=== PATIENT | male | born 1955 | race Caucasian/White ===

== ENCOUNTER 2017-01-20 07:11 | Observation (INO) | payer OTHER ==
[~2017-01-20] VITALS: Ht 177.8 cm; Wt 89.0 kg
[~2017-01-20 07:11] MED LIST: ADVAIR 500/501 DISK IH; ALBUTEROL2.5 MG/3 M IH; BUSPAR10 MG PO; CELLCEPT500 MG PO; FISH OIL SOFTG1 EAC1 PO; FLOVENT 22120 INHALA IH; LIPITOR20 MG PO; LOTENSIN10 MG PO; MULTIVITAMIN1 EAC2 PO; NAPROSYN500 MG PO; PERCOCET 5/31 TABLET PO; PREDNISONE10 MG PO; PROAIR HFA8.5 GM IH; SINGULAIR10 MG PO; SPIRIVA1 INHALATI IH; SYMBICORT60 INHALAT IH; VIIBRYD40 MG PO
[2017-01-20 07:48] LABS: BASOPHIL COUNT 0.1 K/uL (0-0.1); EOSINOPHIL (%) 5.1 % (0-5); EOSINOPHIL COUNT 0.7 K/uL (0-0.3); HEMATOCRIT 48.1 % (38.0-50.0); IMMATURE GRANULOCYTE (%) 0.7 % (0.0-0.7); IMMATURE GRANULOCYTE COUNT 0.1 K/uL; INSTRUMENT ABS NEUTROPHIL CT 9.8 K/uL; LYMPHOCYTE COUNT 1.9 K/uL (1.0-2.8); MCH 31.2 PG (29.0-34.0); MCHC 33.9 G/DL (30.0-36.0); MCV 92.1 FL (86-99); MEAN PLAT.VOLUME 10.2 uM^3 (9.0-12.4); MONOCYTE (%) 9.3 % (3-12); MONOCYTE COUNT 1.3 K/uL (0-0.8); NEUTROPHIL (%) 70.4 % (45-76); NEUTROPHIL COUNT 9.8 K/uL (1.8-6.4); PLATELET COUNT 219 K/uL (156-360); RBC DIS.WIDTH-CV 13.1 % (11.8-14.6); RBC DIS.WIDTH-SD 44.2 % (39-53); RED BLOOD COUNT 5.22 M/uL (4.00-5.50)
[2017-01-20 08:05] LABS: INTER. NORMALIZED RATIO 1.1; PROTHROMBIN TIME 10.7 (9.2-11.2); PTT 23.9 (25-32)
[2017-01-20 08:18] LABS: ANION GAP 8 MEQ/L (2-14); CHLORIDE 108 MEQ/L (99-109); GFR ESTIMATE (CALCULATED) > 59 mL/min/; GLUCOSE 139 mg/dL (70-99); MAGNESIUM 1.8 mg/dl (1.3-2.7); POTASSIUM 4.8 MEQ/L (3.7-5.4); SAMPLE HEMOLYSIS CHECK 0; SAMPLE ICTERIC CHECK 0; SAMPLE LIPEMIA CHECK 0; SODIUM 141 MEQ/L (136-147); UREA NITROGEN (BUN) 18 mg/dL (9-23)
[2017-01-20 08:23] LABS: TROP-I INTERPRETATION NEGATIVE; TROPONIN-I 0.01 ng/mL (0.0-0.30)
[2017-01-20] MEDS ORDERED: LIPITOR40 MG PO (11:53)
[2017-01-20] MEDS ORDERED: LOTENSIN20 MG PO (11:55)
[2017-01-20] MEDS ORDERED: BUSPAR30 MG PO (12:00)
[2017-01-20] MEDS ORDERED: CELLCEPT250 MG PO (12:04)
[2017-01-20] MEDS ORDERED: ALPRAZOLAM0.25 M2 PO (12:05)
[2017-01-20] MEDS ORDERED: TAMSULOSIN HCL0.4 MG PO (12:05)
[2017-01-20] MEDS ORDERED: ZYRTEC-D1 TABLE1 PO (12:08)
[2017-01-20] MEDS ORDERED: SUPER CALCIUM600 MG PO (12:08)
[2017-01-20 16:51] VITALS: BP 127/78
[2017-01-20 16:53] LABS: POINT-OF-CARE METER ID UU14174225
[2017-01-20 19:15] VITALS: BP 133/73
[2017-01-21 00:08] VITALS: BP 123/69
[2017-01-21 04:00] VITALS: BP 122/63
[2017-01-21 07:46] LABS: POINT-OF-CARE METER ID UU14174225
[2017-01-21 08:04] VITALS: BP 133/75
[2017-01-21 09:07] LABS: HEMATOCRIT 42.4 % (38.0-50.0); MCH 32.3 PG (29.0-34.0); MCHC 34.9 G/DL (30.0-36.0); MCV 92.6 FL (86-99); MEAN PLAT.VOLUME 10.6 uM^3 (9.0-12.4); PLATELET COUNT 223 K/uL (156-360); RBC DIS.WIDTH-CV 13.2 % (11.8-14.6); RBC DIS.WIDTH-SD 44.3 % (39-53); RED BLOOD COUNT 4.58 M/uL (4.00-5.50); WHITE BLOOD COUNT 26.6 K/uL (4.1-10.2)
[2017-01-21 09:26] LABS: ANION GAP 10 MEQ/L (2-14); CHLORIDE 104 MEQ/L (99-109); GFR ESTIMATE (CALCULATED) > 59 mL/min/; GLUCOSE 148 mg/dL (70-99); POTASSIUM 4.2 MEQ/L (3.7-5.4); SAMPLE HEMOLYSIS CHECK 0; SAMPLE ICTERIC CHECK 0; SAMPLE LIPEMIA CHECK 0; SODIUM 138 MEQ/L (136-147); UREA NITROGEN (BUN) 18 mg/dL (9-23)
[2017-01-21 10:28] LABS: ADD MIUA? NO; BILIRUBIN NEGATIVE; BLOOD NEGATIVE; COLOR YELLOW ((YELLOW)); GLUCOSE (STRIP) 50; KETONES NEGATIVE; LEUKOCYTES NEGATIVE; NITRITE NEGATIVE; PROTEIN (STRIP) NEGATIVE; SPECIFIC GRAVITY 1.012 (1.000-1.030); UCUL ADDED? NO; UROBILINOGEN 0.2 MG/DL (0.2-1.0)
[2017-01-21 10:34] VITALS: BP 122/74
[2017-01-21] MEDS ORDERED: PREDNISONE10 MG PO (11:02)
== END 2017-01-21 12:38 | disposition home or self-care (01) ==
LOC: EME 07:11 → 5SOUTH 10:44 → EDOF 10:44 → 5SOUTH 10:44
PROVIDERS: Emergency Medicine; Internal Medicine; Physician Assistant Medical
DX: J45.901 Unspecified asthma with (acute) exacerbation (principal); J96.01 Acute respiratory failure with hypoxia; R91.1 Solitary pulmonary nodule; N04.9 Nephrotic syndrome with unspecified morphologic changes; F39 Unspecified mood [affective] disorder; Z88.2 Allergy status to sulfonamides
CPT/HCPCS: 36415; 71010; 71275; 80048; 80069; 81003; 82570; 82948; 83735; 83880; 84156; 84484; 85025; 85027; 85610; 85730; 93005; 94002; 94640; 94640 76; 94644; 94799; 99202; 99281; 99285; G0378; J1650; J1815; J2930; J3475; J7030

== ENCOUNTER 2017-08-04 19:18 | Observation (INO) | payer OTHER ==
[~2017-08-04] VITALS: Ht 175.3 cm; Wt 90.0 kg
[~2017-08-04 19:18] MED LIST changes: +ALPRAZOLAM0.25 M2 PO; +BUSPAR30 MG PO; +CELLCEPT250 MG PO; +LIPITOR40 MG PO; +LOTENSIN20 MG PO; +SUPER CALCIUM600 MG PO; +TAMSULOSIN HCL0.4 MG PO; +ZYRTEC-D1 TABLE1 PO
[2017-08-04 20:28] LABS: HEMATOCRIT 43.5 % (38.0-50.0); HEMOGLOBIN 15.2 G/DL (12.5-16.6); MCH 31.9 PG (29.0-34.0); MCHC 34.9 G/DL (30.0-36.0); MCV 91.4 FL (86-99); PLATELET COUNT 186 K/uL (156-360); RBC DIS.WIDTH-CV 12.8 % (11.8-14.6); RBC DIS.WIDTH-SD 42.6 % (39-53); RED BLOOD COUNT 4.76 M/uL (4.00-5.50); WHITE BLOOD COUNT 13.2 K/uL (4.1-10.2)
[2017-08-04 20:37] LABS: CHLORIDE 104 mEq/L (99-109); POTASSIUM 4.2 mEq/L (3.7-5.4); SODIUM 139 mEq/L (136-147)
[2017-08-04 20:38] LABS: GLUCOSE 113 mg/dL (70-99)
[2017-08-04 20:42] LABS: GFR ESTIMATE (CALCULATED) > 59 mL/min/ (58.99-99999)
[2017-08-04 20:43] LABS: UREA NITROGEN (BUN) 11 mg/dL (9-23)
[2017-08-04 21:35] LABS: TROP-I INTERPRETATION NEGATIVE; TROPONIN-I < 0.01 ng/mL (0.0-0.30)
[2017-08-05] MEDS ORDERED: XANAX0.25 MG PO (00:57)
[2017-08-05] MEDS ORDERED: BENAZEPRIL HCL20 MG PO (00:58)
[2017-08-05] MEDS ORDERED: PRAVASTATIN SOD40 MG PO (00:59)
[2017-08-05 01:41] VITALS: BP 140/87
[2017-08-05 04:25] VITALS: BP 138/89
[2017-08-05 07:48] VITALS: BP 141/85
[2017-08-05] MEDS ORDERED: MUCINEX600 MG PO (10:36)
[2017-08-05] MEDS ORDERED: PREDNISONE10 MG PO (10:36)
== END 2017-08-05 12:31 | disposition home or self-care (01) ==
LOC: EXP 19:18 → EME 19:18 → EDOF 08-05 00:12 → ENRESERV 08-05 00:17 → 5WEST 08-05 01:19
PROVIDERS: Physician Assistant
DX: J45.41 Moderate persistent asthma with (acute) exacerbation (principal); E78.5 Hyperlipidemia, unspecified; N40.0 Benign prostatic hyperplasia without lower urinary tract symptoms; I10 Essential (primary) hypertension; Z79.899 Other long term (current) drug therapy; Z79.52 Long term (current) use of systemic steroids; R91.8 Other nonspecific abnormal finding of lung field; D72.829 Elevated white blood cell count, unspecified; F41.9 Anxiety disorder, unspecified; Z80.42 Family history of malignant neoplasm of prostate; Z88.2 Allergy status to sulfonamides
CPT/HCPCS: 71020; 71275; 80048; 81003; 84484; 85027; 85379; 93005; 94640; 94640 76; 94644; 99202; 99281; 99285; G0378; J1650; J2930; J7517